=== PATIENT | female | born 1950 | race Caucasian/White ===

== ENCOUNTER → 2019-05-25 | Outpatient (CLI) | payer MEDICARE, OTHER ==
--- NOTE | 2019-05-25 10:28 | Diagnostic Imaging Report ---
EXAMINATION: CT scan of the chest without contrast. TECHNIQUE: Spiral CT images of the chest were performed from the lung apices to the level of the adrenal glands. No intravenous contrast was administered per referring physician request. Coronal and sagittal reformatted images were obtained. COMPARISON: None. CLINICAL HISTORY:50+ pack year history of smoking DISCUSSION: ABSENCE OF INTRAVENOUS CONTRAST DECREASES SENSITIVITY FOR DETECTION OF FOCAL LESIONS AND VASCULAR PATHOLOGY. LINES/TUBES: None. LUNGS AND AIRWAYS: Biapical pleural-parenchymal scar. Adjacent 4-5 mm solid nodules in the right apex (series 3 image 21 and 22). 3 mm groundglass nodule right middle lobe series 3 image 71. 5 mm groundglass nodule superior segment right lower lobe series 3 image 74. 4 mm juxtapleural nodule lateral segment left lower lobe series 3 image 81. Lobulated 6 mm nodule lateral segment left lower lobe series 3 image 68. No consolidations or bronchiectasis. PLEURA: No pneumothorax or pleural effusions. HEART AND MEDIASTINUM: The thyroid gland is normal. No ectasia or aneurysmal dilatation of the thoracic aorta. Atherosclerotic vascular calcifications of the great vessel origins and [place] left anterior descending and left circumflex coronary arteries. Pulmonary outflow tract is of normal caliber. No pericardial effusion. LYMPH NODES: No axillary, hilar, or mediastinal lymphadenopathy. ABDOMEN: 1.9 cm ovoid low-attenuation lesion (0 Hounsfield units) in hepatic segment 2 likely a cyst. Otherwise visualized portions of the liver, spleen, and left adrenal gland are unremarkable. BONES AND SOFT TISSUES: No osseous destructive lesions. Multilevel degenerative disc changes of the thoracic spine. Age-indeterminate mild anterior compression deformity of T11. No focal soft tissue abnormalities. IMPRESSION: Scattered solid and groundglass bilateral pulmonary nodules measuring up to 6 mm. Follow-up CT scan of the chest without contrast is suggested in one year to assess for stability per Fleischner Society 2017 guidelines for a high risk patient. Atherosclerotic vascular disease. Signed by: Dr. Humberto Allison M.D. on 05/25/2019 10:24 AM
== END ==
LOC: CT 09:26
PROVIDERS: ATTEND Internal Medicine
DX: Z12.2 Encounter for screening for malignant neoplasm of respiratory organs (principal); R91.8 Other nonspecific abnormal finding of lung field; F17.210 Nicotine dependence, cigarettes, uncomplicated
CPT/HCPCS: 71250